=== PATIENT | female | born 1940 | race Caucasian/White ===

== ENCOUNTER → 2016-09-12 | Outpatient (CLI) | payer MEDICARE ==
[2016-09-12 10:48] LABS: CH 30.8; CHCM 34.1; HCT 39.4 % (34.0-46.0); HDW 2.54; HGB 13.2 gm/dL (11.4-16.0); MCH 30.5 pg (25.0-35.0); MCHC 33.6 g/dL (31.0-37.0); MCV 90.7 fL (80.0-100.0); Mean Platelet Volume 7.7; RBC 4.34 m/uL (3.80-5.40); RDW 12.9 % (11.5-15.5); WBC 5.4 k/uL (3.8-10.6)
[2016-09-12 10:49] LABS: Partial Thromboplastin Time 22.2 sec (22.0-30.0)
[2016-09-12 10:51] LABS: Prothrombin Time 10.2 sec (9.0-12.0)
[2016-09-12 11:00] LABS: ALT 68 U/L (9-52); AST 50 U/L (14-36); Alkaline Phosphatase 94 U/L (38-126); Anion Gap 12 mmol/L; Blood Urea Nitrogen 16 mg/dL (7-17); Calcium 9.6 mg/dL (8.4-10.2); Carbon Dioxide 21 mmol/L (22-30); Chloride 108 mmol/L (98-107); Glucose 127 mg/dL (74-99); Non-African American GFR(MDRD) >60 (>60 ml/min/1.73 sqM); Potassium 4.8 mmol/L (3.5-5.1); Sodium 141 mmol/L (137-145); Total Bilirubin 0.6 mg/dL (0.2-1.3); Total Protein 6.7 g/dL (6.3-8.2)
[2016-09-12 11:15] LABS: Appearance,Urine Clear (Clear); Bacteria,Urine Rare /hpf; Bilirubin,Urine Negative (Negative); Glucose,Urine (UA) Negative (Negative); Ketones,Urine Negative (Negative); Leukocyte Esterase,Urine Large (Negative); Mucus,Urine Rare /hpf; Nitrite,Urine Negative (Negative); PH, Urine 5.5 (5.0-8.0); Particle Count 2303; Protein,Urine Negative (Negative); RBC,Urine 2 /hpf (0-5); Specific Gravity,Urine 1.015 (1.001-1.035); Squamous Epithelial Cell,Urine 5 /hpf (0-4); UA Billing (MACRO vs. MICRO) MICRO; Urobilinogen,Urine <2.0 mg/dL (<2.0); WBC,Urine 13 /hpf (0-5)
== END | disposition home or self-care (01) ==
LOC: LABPAT 09:54
PROVIDERS: ATTEND Orthopaedic Surgery
DX: Z01.810 Encounter for preprocedural cardiovascular examination (principal); Z01.812 Encounter for preprocedural laboratory examination
CPT/HCPCS: 80053; 81001; 85027; 85610; 85730; 87070

== ENCOUNTER → 2016-09-20 | Outpatient (CLI) | payer MEDICARE ==
--- NOTE | 2016-09-20 10:39 | USB ---
Reason for exam: follow-up at short interval from prior study. History: Patient is postmenopausal. Family history of breast cancer in paternal aunt at age 70 and breast cancer in maternal aunt. Benign excisional biopsy of the right breast, 2008. Benign excisional biopsy of the right breast. Physical Findings: Nurse did not find any significant physical abnormalities on exam. US Breast RT Prior study comparison: March 21, 2016, right breast US breast workup limited RT. Right breast ultrasound includes all four quadrants, the retroareolar region and axilla. Finding demonstrates a 3 x 3 x 3mm cystic lesion at the retroareolar position. These results were verbally communicated with the patient and result sheet given to the patient on 09/20/16. ASSESSMENT: Benign, BI-RAD 2 RECOMMENDATION: Return to routine screening mammogram schedule for both breasts. Back on schedule.
== END ==
LOC: RADUSWWP 08:53
PROVIDERS: ATTEND Family Medicine
DX: N63 Unspecified lump in breast (principal)

== ENCOUNTER 2016-09-23 07:27 | Inpatient (IN) | payer MEDICARE ==
[2016-09-18 16:40] VITALS: BMI 31.1
[~2016-09-23 07:27] MED LIST: ACETAMINOPHEN TAB 500 MG TAB PO ONE; CLINDAMYCIN 900 MG in DEXTROSE 5% IN WATER 50 ML IVPB ONE; DEXAMETHASONE SOD PHOSPHATE 10 MG/ML 1 ML VIAL IV ONE; HYDROmorphone 1 MG/ML 1 ML SYRINGE IVP PRN; MELOXICAM 7.5 MG TAB PO ONE; MIDAZOLAM 2 MG/2 ML VIAL IV PRN; ONDANSETRON 4 MG/2 ML VIAL IVP ONE; TRANEXAMIC ACID 1,000 MG in SODIUM CHLORIDE 0.9% 100 ML IVPB ONE
[2016-09-23] MEDS: LACTATED RINGERS 1,000 ML IV SCH ×2 (07:43→18:29)
[2016-09-23] MEDS ORDERED: LIDOCAINE 1% 20 ML VIAL (10MG/ML) FOR IV START INTRADERMA ONE (07:43)
[2016-09-23] MEDS ORDERED: fentaNYL (PF) 50 MCG/ML 2 ML AMP IV ONE (08:50)
[2016-09-23] MEDS ORDERED: ePHEDrine 50 MG/ML 1 ML AMP ONE (09:57)
[2016-09-23] MEDS ORDERED: MIDAZOLAM 2 MG/2 ML VIAL ONE (09:57)
[2016-09-23] MEDS ORDERED: PROPOFOL 10 MG/ML 20 ML VIAL IV ONE (09:57)
[2016-09-23] MEDS ORDERED: CLINDAMYCIN 1,800 MG in SODIUM CHLORIDE 0.9% IRRIGATIO 3,000 ML IRRIGATION ONE (09:57)
[2016-09-23] MEDS ORDERED: SODIUM CHLORIDE 0.9% 100 ML BAG ONE (09:57)
[2016-09-23] MEDS ORDERED: PHENYLEPHRINE-0.9% NACL SYG 1 MG/10 ML SYRINGE ONE (09:57)
[2016-09-23] MEDS ORDERED: TRANEXAMIC ACID 1,000 MG/10 ML VIAL ONE (09:57)
[2016-09-23] MEDS ORDERED: fentaNYL (PF) 50 MCG/ML 2 ML AMP ONE (09:57)
[2016-09-23] MEDS: ROPIVACAINE 246.25 MG, EPINEPHrine 0.5 MG, KETOROLAC 30 MG, cloNIDine HCL/PF 80 MCG, WA... MISCELLANE ONE ×10 (10:27→11:00)
[2016-09-23] MEDS ORDERED: LACTATED RINGERS 1,000 ML IV ONE (10:48)
--- NOTE | 2016-09-23 11:15 | P.OP ---
Date of Procedure: 09/23/16 Preoperative Diagnosis: Severe osteoarthritis left knee Postoperative Diagnosis: Severe osteoarthritis left knee Procedure(s) Performed: Left total knee arthroplasty Implants: Tom and Nephew Oxinium femoral component size 4, left Tom & Nephew Nehal II left nonporous tibial baseplate size 3 Tom & Nephew size 9 mm Legion XLPE high flexion articular insert, size 3-4 Tom [employer] Nephew Nehal II resurfacing patellar component, 29 mm All components were cemented using Sheela bone cement.. The articulation is ceramic on polyethylene. Anesthesia: spinal Surgeon: Brandon Gary Gear Lapper #1: Nida Andres Estimated Blood Loss (ml): 50 Pathology: other (Bone and cartilage) Condition: stable Disposition: PACU Indications for Procedure: After failure of conservative treatment we discussed the surgical and nonsurgical treatment options at length. Patient wishes to proceed with a total knee arthroplasty. Complications specific to this procedure were discussed at length, including but not limited to infection, bleeding, stiffness , and nerve injury. Patient is aware of all these complications and informed consent was obtained Operative Findings: The operative findings are consistent with severe osteoarthritis of the left knee Description of Procedure: Patient was seen in the preoperative area consent was reviewed and operative site was marked with a skin marker. An adductor canal pain catheter was placed by anesthesia in the preoperative area. Patient was then brought to the operating room and given preoperative antibiotics intravenously. A spinal anesthetic was administered by the anesthesia department. A tourniquet was placed on the upper thigh and the lower extremity was prepped and draped in usual sterile fashion. A gram of transexamic acid was given. A universal timeout was then performed which confirmed the patient's name, surgical site, ALLERGIES, and consent. The lower extremity was then exsanguinated and tourniquet was inflated to 250 mmHg. A standard and anterior midline approach to the knee was performed. The skin and subcutaneous tissue was dissected down to the patellar tendon. A medial parapatellar arthrotomy was then performed. The knee was then extended, the patellar was everted, and the knee was again flexed. Anterior horns of both menisci were excised, and a release was performed to the posterior medial aspect of the knee. On gross visual inspection, there was complete loss of articular cartilage in the medial and patellofemoral joint spaces. There was also significant cartilage damage in the lateral compartment. There were multiple periarticular osteophytes which were then removed with a Ronguer. The femoral canal was then opened with the appropriate drill, and the intramedullary femoral cutting guide was then placed and set for 4 of valgus. The distal femoral cutting block was then pinned in place, and the distal femur was then cut. The cutting block was then removed and the cut was checked for flatness. Next, the sizing guide was then placed and set for 3 external rotation based off of the epicondylar axis and Whitesides line. After the femur was sized, the appropriate 4-in-1 cutting block was then pinned in place. The anterior condyles were cut without notching. The posterior and chamfer cuts were performed while protecting the collateral ligaments. The cutting block was then removed, and the femoral canal was plugged with autologous bone. Attention was then directed to the tibia. The remaining ACL was removed with a Ronguer, and the tibia was then gently subluxed forward with a large bent knee retractor. Any remaining menisci was excised. The posterior lateral corner was cauterized in order to cauterize the lateral geniculate artery. The extra medullary tibial cutting guide was then placed, set for the appropriate rotation , slope, and depth of resection. The proximal tibia cutting guide was then pinned in place. Proximal tibia was then cut and sized. Next trials were then placed with the appropriate-sized insert. The knee was able to fully extend and flex to 130 and was stable throughout all range of motion. The knee was then extended, patella everted. Patella was then measured, and then using an osteotomy guide, the patella was cut at the appropriate level. The patella was then measured and drilled and the patella trial was then placed. The knee was then taken through range of motion with the patella trial and the patella tracked normally. The knee was then extended patella trial was then removed and the patella was everted. Knee was then flexed and lug holes were drilled through the femoral trial and the femoral trial was then removed. The tibial was then exposed, and the tibial broach guide was then pinned in place after it was set for the appropriate rotation to allow for the most coverage without overhang. The tibia was then reamed and broached. The cut surfaces of bone were then irrigated with pulsatile lavage. The posterior structures were injected with the ropivacaine solution. The knee was also irrigated with Irrisept solution. The components were then opened, the cement was mixed, and the components were then cemented in place. The cement was allowed to harden with the knee in full extension. While the cement was hardening, the remaining soft tissues were then injected with a ropivacaine solution, which consisted of 246.25 mg of ropivacaine, 0.5 mg of epinephrine, 30 mg of Toradol, 80 g of clonidine, and 48.45 mL of sterile water, for a total of 100 mL of fluid injected. After the cemented hardened. The tourniquet was released, and hemostasis was obtained. A second gram of transexamic acid was given. The knee was again irrigated. The knee was again taken through range of motion and found to be stable throughout all range of motion of 0-130 , and the patella tracked normally. The fascia was then closed with #2 strata fix suture. The subcutaneous tissue was closed with 3-0 Vicryl and 3-0 strata fix. Dermabond tape was used for the skin and placed with the knee in flexion. The patient was placed in a sterile dressing. Patient was then transferred to recovery room in stable condition. The library technical assistant GERMAN Gillespie was required due the complexity surgery and the need for a skilled surgical scrub technologist. She assisted in positioning, draping, retraction, and closure of the wound.
[2016-09-23] MEDS ORDERED: MAGNESIUM HYDROXIDE 2,400 MG/10 ML CUP PO PRN (11:49)
[2016-09-23] MEDS ORDERED: HYDROmorphone 1 MG/ML 1 ML SYRINGE IVP PRN ×3 (11:49)
[2016-09-23] MEDS ORDERED: BISACODYL 10 MG SUPP RECTAL PRN (11:49)
[2016-09-23] MEDS ORDERED: DIAZEPAM 5 MG TAB PO PRN ×2 (11:49)
[2016-09-23] MEDS ORDERED: NA PHOS,M-B/NA PHOS,DI-BA 133 ML ENEMA RECTAL PRN (11:49)
[2016-09-23] MEDS ORDERED: hydrOXYzine PAMOATE 25 MG CAP PO PRN (11:49)
[2016-09-23] MEDS ORDERED: NALOXONE 0.4 MG/ML 1 ML VIAL IV PRN (11:49)
[2016-09-23] MEDS ORDERED: SODIUM CHLORIDE 0.9% 1,000 ML IV SCH (12:00)
[2016-09-23] MEDS ORDERED: ROPIVACAINE 1,100 MG, SODIUM CHLORIDE 0.9% 330 ML MISCELLANE PRN ×2 (12:28)
--- NOTE | 2016-09-23 12:34 | XR ---
EXAMINATION TYPE: XR knee limited LT DATE OF EXAM: 09/23/2016 CLINICAL HISTORY: Left knee pain and arthritis status post total knee replacement. TECHNIQUE: Portable AP and crosstable lateral views of the left knee are obtained immediately postop eratively. COMPARISON: None FINDINGS: Overlying bandage material makes evaluation slightly suboptimal. Metallic hardware from to gerardo left knee arthroplasty is seen and appears satisfactory in alignment and position. There is evid ence of recent surgery with diffuse subcutaneous gas and soft tissue swelling noted. IMPRESSION: METALLIC HARDWARE FROM TOTAL LEFT KNEE ARTHROPLASTY IS SATISFACTORY IN ALIGNMENT.
--- NOTE | 2016-09-23 12:53 | P.ONQ ---
Anesthesiology Proc Note - PNB - Peripheral Nerve Block Performed Left Adductor Canal Infusion Time Out Performed: Yes Indication: Acute Post-Operative Pain, Analgesia Specifically requested for management of pain by DrWendy: Brandon Gary Sedation Type: Sedate with meaningful contact maintained Preparation: Sterile Prep Position: Supine Catheter Depth at Skin (cm): 6 Catheter: Indwelling Needle Types: Other (see comment) (Pajunk) Needle Size: 100mm (4") Needle Gauge: Other (see comment) Technique: Ultrasound Injectate: 0.5% Ropivacaine (see comment for volume) (20) Blood Aspirated: No Pain Paresthesia on Injection Noted: No Resistance on Injection: Normal Events: Uneventful and Well Tolerated
[2016-09-23] MEDS: CLINDAMYCIN 900 MG in DEXTROSE 5% IN WATER 50 ML IVPB SCH ×4 (15:18→21:37)
[2016-09-23] MEDS ORDERED: LACTATED RINGERS 250 ML IV SCH (18:30)
[2016-09-23] MEDS: ASPIRIN 325 MG TAB PO SCH (21:21)
[2016-09-23] MEDS: SENNOSIDES-DOCUSATE SODIUM 1 EACH TAB PO SCH (21:21)
[2016-09-24] MEDS: HYDROcodone/APAP 5-325MG 1 EACH TAB PO PRN ×3 (03:40→19:56)
[2016-09-24] MEDS: LACTATED RINGERS 1,000 ML IV SCH ×4 (04:22→22:25)
[2016-09-24 07:15] LABS: Basophils % (A) 0 %; CHCM 34.3; Eosinophils % (A) 0 %; HCT 31.1 % (34.0-46.0); HDW 2.43; HGB 10.3 gm/dL (11.4-16.0); Luc # (Auto) 0.24; Luc % (Auto) 3; Lymphocytes # (A) 1.2 k/uL (1.0-4.8); Lymphocytes % (A) 14 %; MCH 30.2 pg (25.0-35.0); MCHC 33.3 g/dL (31.0-37.0); MCV 90.7 fL (80.0-100.0); Mean Platelet Volume 7.5; Monocytes # (A) 0.6 k/uL (0-1.0); Monocytes % (A) 7 %; Neutrophils # (A) 6.8 k/uL (1.3-7.7); Neutrophils % (A) 76 %; RBC 3.42 m/uL (3.80-5.40); RDW 12.7 % (11.5-15.5); WBC 8.9 k/uL (3.8-10.6); WBC (Perox) 9.21
[2016-09-24] MEDS: ASPIRIN 325 MG TAB PO SCH ×2 (08:02→19:56)
[2016-09-24] MEDS: MELOXICAM 7.5 MG TAB PO SCH (08:02)
--- NOTE | 2016-09-24 11:02 | P.PN ---
Progress Note - Text 0650 anesthesia POD 1. Patient is status post left TKR under spinal anesthesia with a left adductor canal catheter placed for postoperative pain relief. With the infusion of 0.2% ropivacaine at 10 mL per hour the patient's VAS is (3, 5). Catheter site is intact clean and dry.
--- NOTE | 2016-09-24 13:34 | P.PN ---
Subjective Principal diagnosis: Status post total left knee arthroplasty This is a well-appearing 76-year-old female who is status post total left knee arthroplasty. This is postoperative day #1. Patient states her pain is under control and she has been able to get up and walk around. Patient states she has been unable to have a bowel movement but she has been passing gas. Otherwise, patient has no complaints and is doing well. Objective - Vital Signs Vital signs: Vital Signs Temp 97.3 F L 09/24/16 07:00 Pulse 72 09/24/16 07:00 Resp 16 09/24/16 07:00 BP 93/56 09/24/16 07:00 Pulse Ox 94 L 09/24/16 07:00 Intake & Output 09/23/16 09/24/16 09/24/16 18:59 06:59 18:59 Intake Total 1457 2279.5 150 Output Total 50 1300 Balance 1407 979.5 150 Intake: IV 1457 Intake, IV Titration 1679.5 Amount Lactated Ringers 1,000 ml 1429.5 @ 125 mls/hr IV .Q8H MIKE Rx#:[id number] Lactated Ringers 250 ml @ 250 999 mls/hr IV .Q16M MIKE Rx#:[id number] Oral 600 150 Output: Urine 1300 Straight 1300 Estimated Blood Loss 50 - Exam Vital signs are stable. Patient is in no acute distress and is alert and oriented 3. Calf is soft and nontender. Incision is clean, dry, and intact. Neurovascular status intact. Patient has full foot and ankle motion. - Labs CBC & Chem 7: 09/24/16 06:32 Labs: Abnormal Lab Results - Last 24 Hours (Table) 09/24/16 Range/Units 06:32 RBC 3.42 L (3.80-5.40) m/uL Hgb 10.3 L (11.4-16.0) gm/dL Hct 31.1 L (34.0-46.0) % Assessment and Plan (1) S/P total knee arthroplasty Status: Acute (2) Primary osteoarthritis of left knee Status: Acute Plan: #1 Continue with routine postoperative care. #2 Anticoagulation with aspirin. #3 Physical therapy and CPM today. #4 Appreciated input from medicine. #5 Anticipate discharge home with home care likely tomorrow.
[2016-09-24] MEDS: SENNOSIDES-DOCUSATE SODIUM 1 EACH TAB PO SCH (19:56)
[2016-09-24] MEDS ORDERED: LOVASTATIN 80 MG PO SCH (23:45)
[2016-09-25] MEDS: ONDANSETRON 4 MG/2 ML VIAL IVP PRN ×2 (00:06→08:09)
[2016-09-25] MEDS: HYDROcodone/APAP 5-325MG 1 EACH TAB PO PRN ×4 (01:59→19:58)
[2016-09-25] MEDS: MAGNESIUM OXIDE 400 MG TAB PO SCH ×2 (01:59→08:10)
[2016-09-25] MEDS: LEVOTHYROXINE 88 MCG TAB PO SCH ×2 (02:00→08:15)
--- NOTE | 2016-09-25 07:29 | CONS ---
DATE OF CONSULTATION: 09/25/2016 REASON FOR CONSULTATION: Medical management requested by Dr. Parekh. CONSULTATION: This is a 76-year-old patient of Dr. Parekh who has undergone left total knee arthroplasty. Post ( ) did have some nausea, tired that was getting better. Chronic stable medical conditions include hypertension, hyperlipidemia, hypothyroid, psoriasis. Patient is feeling better. No chest pain, shortness of breath. Did tolerate some diet. REVIEW OF SYSTEMS: CONSTITUTIONAL: None. HEENT: None. RESPIRATORY: None. CARDIOVASCULAR: None. GASTROINTESTINAL: None. GENITOURINARY: None. MUSCULOSKELETAL: DERMATOLOGICAL: Psoriasis. LYMPHATICS: None. PSYCHIATRY: None. NEUROLOGICAL: None. PAST HISTORY: Hypertension, hyperlipidemia, hypothyroid, psoriasis, osteoarthritis. PAST SURGICAL HISTORY: Appendectomy, orthopedic surgery, tonsillectomy, thyroidectomy, cyst removed from the right breast. SOCIAL HISTORY: Patient smoked less than pack a day for over 35 years; stopped in 1994. Alcohol none. FAMILY HISTORY: Myocardial infarction, hypertension, thyroid disorder. HOME MEDICATIONS: 1. Bactrim DS 1 tablet p.o. q.12. 2. Magnesium 500 mg p.o. daily. 3. Lovastatin 80 mg q.h.s. 4. Lisinopril 20 mg p.o. daily. 5. Synthroid 88 mcg p.o. daily. 6. Vitamin D3, 5000 units p.o. daily. 7. Aspirin 81 mg q.h.s. 8. Senokot-S 1 tablet p.o. b.i.d. 9. [place] 5 one to 2 tablets q.4 p.r.n. 10. Aspirin. Allergies to PENICILLIN and LIPITOR. On examination, temperature 97.6, pulse 85, respirations 16, blood pressure 125/65, pulse ox 95%. GENERAL APPEARANCE: Well built, BMI 31.1. Sitting up in a chair, not in distress. EYES: Pupils equal. Conjunctivae normal. HENT: External appearance of nose and ears normal. Oral cavity normal. NECK: JVD not raised. Mass not palpable. RESPIRATORY: Effort normal. LUNGS: Fair air entry. CARDIOVASCULAR: First and second sounds normal. No edema. ABDOMEN: Soft, nontender. Liver and spleen not palpable. LYMPHATIC: No lymph node palpable in neck or axillae. PSYCHIATRY: Alert and oriented x3. Mood and affect normal. NEUROLOGICAL: Pupils equal. Cranial nerves grossly intact. Power and sensation grossly intact. INVESTIGATIONS: White count 8.9, hemoglobin 10.3, platelets 191. ASSESSMENT: 1. Left total knee arthroplasty. 2. Essential hypertension. 3. Hyperlipidemia. 4. Hypothyroidism. PLAN: Home medications will be resumed and getting aspirin for DVT prophylaxis. Care was discussed with the patient. Questions were answered. Patient should follow with Dr. Parekh after discharge. Thank you Dr. Gary.
[2016-09-25] MEDS: LACTATED RINGERS 1,000 ML IV SCH ×2 (08:10→13:45)
[2016-09-25] MEDS: ASPIRIN 325 MG TAB PO SCH ×2 (08:10→19:58)
[2016-09-25] MEDS: MELOXICAM 7.5 MG TAB PO SCH (08:10)
[2016-09-25] MEDS: LISINOPRIL 20 MG TAB PO SCH (08:11)
--- NOTE | 2016-09-25 08:32 | P.DS ---
Providers Date of admission: 09/23/16 07:27 Expected date of discharge: 09/25/16 Attending physician: Brandon Gary Consults: 09/23/16 11:49 Consult Physician Routine Consulting Provider: Ector Mancia Consult Reason/Comments: medical management Do you want consulting provider notified?: Yes Primary care physician: Manuel Parekh - Discharge Diagnosis(es) (1) S/P total knee arthroplasty Current Visit: Yes Status: Acute (2) Primary osteoarthritis of left knee Current Visit: Yes Status: Acute Hospital Course: This is a 76-year-old female with known history of degenerative arthritis of the left knee. The patient presents for evaluation. After discussion and consideration patient elects to proceed with total knee arthroplasty. The patient is seen preoperatively by Dr. Gary and cleared for surgery. Patient is admitted to [facility] on 09/23/2016 for total knee arthroplasty. The procedures performed without complication or sequelae. The patient is doing well postoperatively. Labs and vital signs are stable on day of discharge. On day of discharge patient's knee incision is healing well. There is minimal erythema. There is no drainage noted at this time. There is minimal soft tissue swelling to the knee. Patient has full foot and ankle motion without difficulty or pain. Neurovascular status to the left lower extremity is intact. Patient is discharged home in good condition. Please see med rec for accurate list of home medications. Plan - Discharge Summary New Discharge Prescriptions: New Aspirin 325 mg PO BID #60 tab HYDROcodone/APAP 5-325MG [Callender 5-325] 1 - 2 tab PO Q4-6H PRN #90 tab PRN Reason: Pain Sennosides-Docusate Sodium [Senokot-S] 1 tab PO BID #60 tablet Ondansetron Odt [Zofran Odt] 4 mg PO Q8HR PRN #21 tab PRN Reason: Nausea No Action Levothyroxine Sodium [Synthroid] 88 mcg PO QAM Lisinopril 20 mg PO QAM Aspirin 81 mg PO HS Lovastatin 80 mg PO HS Cholecalciferol [Vitamin D3] 5,000 unit PO QAM Sulfamethox-Tmp 800-160Mg [Bactrim DS 800-160 mg] 1 tab PO Q12HR Magnesium Oxide [Magnesium] 500 mg PO DAILY Discharge Medication List Aspirin 81 mg PO HS 05/25/14 [History] Levothyroxine Sodium [Synthroid] 88 mcg PO QAM 05/25/14 [History] Lisinopril 20 mg PO QAM 05/25/14 [History] Lovastatin 80 mg PO HS 05/25/14 [History] Cholecalciferol [Vitamin D3] 5,000 unit PO QAM 04/03/15 [History] Magnesium Oxide [Magnesium] 500 mg PO DAILY 09/19/16 [History] Sulfamethox-Tmp 800-160Mg [Bactrim DS 800-160 mg] 1 tab PO Q12HR 09/19/16 [ History] Aspirin 325 mg PO BID #60 tab 09/24/16 [Rx] HYDROcodone/APAP 5-325MG [Callender 5-325] 1 - 2 tab PO Q4-6H PRN #90 tab 09/24/16 [ Rx] Sennosides-Docusate Sodium [Senokot-S] 1 tab PO BID #60 tablet 09/24/16 [Rx] Ondansetron Odt [Zofran Odt] 4 mg PO Q8HR PRN #21 tab 09/25/16 [Rx] Follow up Appointment(s)/Referral(s): Brandon Gary DO [Doctor of Osteopathic Medicine] - 2 Weeks [facility] Visiting Nurse, [NON-STAFF] - 1 Week Ambulatory/Diagnostic Orders: Continuous Passive Motion (CPM) Machine [DME.AMB1] Time Frame: 2 Weeks, Location : Determined By Patient Continuous Passive Motion (CPM) Machine [DME.AMB1] Time Frame: 2 Weeks, Location : Determined By Patient Activity/Diet/Wound Care/Special Instructions: Weightbearing as tolerated with a walker CPM 5-6h daily Daily dressing changes, keep incision clean and dry May shower if no drainage from incision [facility] with questions or concerns [phone] Discharge Disposition: HOME WITH HOME HEALTH SERVICES
[2016-09-25 14:11] VITALS: RESP 16
[2016-09-25] MEDS: SENNOSIDES-DOCUSATE SODIUM 1 EACH TAB PO SCH (19:58)
--- NOTE | 2016-09-25 20:53 | PN ---
DATE OF SERVICE: 09/25/2016 This 76-year-old woman was admitted after left total knee arthroplasty. She is improving significantly. Patient complains of some pain while walking. No chest pain. No palpitation. No fever. No shortness of breath. On exam, alert and oriented x3. Pulse 74, blood pressure 156/70, respiration 18, temperature 98.1, pulse ox 96% on room air. HEENT: Conjunctivae normal. NECK: No jugular venous distention. CARDIOVASCULAR SYSTEM: S1, S2 muffled. RESPIRATORY SYSTEM: Breath sounds diminished at the bases. No rhonchi. No crackles. ABDOMEN: Soft, non-tender. No mass palpable. LEGS: Status post knee arthroplasty. NERVOUS SYSTEM: No focal deficit. LABS: WBC 8.1, hemoglobin 10.3. ASSESSMENT: 1. Status post left total knee arthroplasty. 2. Anemia, possibly dilutional. 3. History of hypertension. 4. Hyperlipidemia. 5. Hypothyroidism. RECOMMENDATIONS AND DISCUSSION: In this 76-year-old woman who presented after surgery, at this time I recommend to continue current medications, continue symptomatic treatment, continue with the pain medications. Otherwise, incentive spirometry, DVT prophylaxis. Closely follow with primary physician in the outpatient setting. Further recommendations to follow.
[2016-09-26] MEDS: LACTATED RINGERS 1,000 ML IV SCH ×2 (01:15→06:51)
[2016-09-26] MEDS: HYDROcodone/APAP 5-325MG 1 EACH TAB PO PRN ×2 (03:17→09:34)
[2016-09-26 07:50] VITALS: BP 151/72; PULSE 82; TEMP 98.4
[2016-09-26] MEDS: MAGNESIUM OXIDE 400 MG TAB PO SCH (08:14)
[2016-09-26] MEDS: ASPIRIN 325 MG TAB PO SCH (08:14)
[2016-09-26] MEDS: LISINOPRIL 20 MG TAB PO SCH (08:14)
[2016-09-26] MEDS: LEVOTHYROXINE 88 MCG TAB PO SCH (08:14)
[2016-09-26] MEDS: MELOXICAM 7.5 MG TAB PO SCH (08:14)
[2016-09-26 08:17] LABS: Basophils # (A) 0.1 k/uL (0-0.2); Basophils % (A) 1 %; CHCM 33.1; Eosinophils # (A) 0.3 k/uL (0-0.7); Eosinophils % (A) 3 %; HCT 38.4 % (34.0-46.0); HDW 2.33; HGB 12.3 gm/dL (11.4-16.0); Luc # (Auto) 0.37; Luc % (Auto) 4; Lymphocytes % (A) 36 %; MCH 30.1 pg (25.0-35.0); MCV 94.1 fL (80.0-100.0); Mean Platelet Volume 7.9; Monocytes # (A) 0.8 k/uL (0-1.0); Monocytes % (A) 9 %; Neutrophils % (A) 47 %; RBC 4.08 m/uL (3.80-5.40); RDW 13.3 % (11.5-15.5); WBC 8.5 k/uL (3.8-10.6); WBC (Perox) 8.23
== END 2016-09-26 10:35 | disposition home health service (06) | DRG 470 ==
LOC: 2ORMAIN 07:27 → 3SUR 11:49
PROVIDERS: ADMIT Orthopaedic Surgery; ATTEND Orthopaedic Surgery
PROC: 0SRD0J9 Replacement of Left Knee Joint with Synthetic Substitute, Cemented, Open Approach (ICD-10-PCS; principal; 2016-09-23 09:35)
DX: M17.12 Unilateral primary osteoarthritis, left knee (principal); D64.9 Anemia, unspecified; E11.9 Type 2 diabetes mellitus without complications; I10 Essential (primary) hypertension; E89.0 Postprocedural hypothyroidism; T40.2X5A Adverse effect of other opioids, initial encounter; M25.762 Osteophyte, left knee; R11.0 Nausea; M81.0 Age-related osteoporosis without current pathological fracture; M25.462 Effusion, left knee; M21.162 Varus deformity, not elsewhere classified, left knee; H91.90 Unspecified hearing loss, unspecified ear; E78.5 Hyperlipidemia, unspecified; L40.9 Psoriasis, unspecified; R26.2 Difficulty in walking, not elsewhere classified; R53.83 Other fatigue; Z88.0 Allergy status to penicillin; Z79.899 Other long term (current) drug therapy; Z79.82 Long term (current) use of aspirin; Z82.49 Family history of ischemic heart disease and other diseases of the circulatory system; Z87.891 Personal history of nicotine dependence; Z88.8 Allergy status to other drugs, medicaments and biological substances; Z90.49 Acquired absence of other specified parts of digestive tract; Z79.2 Long term (current) use of antibiotics; Z79.891 Long term (current) use of opiate analgesic; Z83.3 Family history of diabetes mellitus; Z83.49 Family history of other endocrine, nutritional and metabolic diseases
CPT/HCPCS: 85025; 88300

== ENCOUNTER → 2017-04-03 | Outpatient (CLI) | payer MEDICARE ==
--- NOTE | 2017-04-03 15:34 | US ---
EXAMINATION TYPE: US kidneys/renal and bladder DATE OF EXAM: 04/03/2017 COMPARISON: NONE CLINICAL HISTORY: N28.9 Renal impairment. Abnormal labs, no symptoms EXAM MEASUREMENTS: Right Kidney: 10.0 x 4.0 x 4.7 cm Left Kidney: 10.0 x 3.8 x 5.7 cm Right Kidney: wnl Left Kidney: wnl Bladder: wnl Bilateral Jets seen: no IMPRESSION: 1. Normal renal ultrasound
== END | disposition home or self-care (01) ==
LOC: RADUSWWP 14:43
PROVIDERS: ATTEND Family Medicine
DX: N28.9 Disorder of kidney and ureter, unspecified (principal)
CPT/HCPCS: 76770

== ENCOUNTER → 2017-05-07 | Outpatient (CLI) | payer MEDICARE ==
--- NOTE | 2017-05-08 10:07 | MM ---
Reason for exam: screening (asymptomatic). Last mammogram was performed 1 year and 2 months ago. History: Patient is postmenopausal. Family history of breast cancer in paternal aunt at age 70 and breast cancer in maternal aunt. Benign excisional biopsy of the right breast, 2008. Benign excisional biopsy of the right breast. Physical Findings: A clinical breast exam by your physician is recommended on an annual basis and results should be correlated with mammographic findings. MG 3D Screening Mammo W/Cad Bilateral CC and MLO view(s) were taken. Prior study comparison: March 12, 2016, bilateral MG 3d screening mammo w/cad. August 15, 2015, right breast MG 3d diag mammo w/cad RT. The breast tissue is heterogeneously dense. This may lower the sensitivity of mammography. No suspicious abnormality. No significant changes when compared with prior studies. ASSESSMENT: Negative, BI-RAD 1 RECOMMENDATION: Routine screening mammogram of both breasts in 1 year.
== END | disposition home or self-care (01) ==
LOC: RADMAMWWP 11:36
PROVIDERS: ATTEND Family Medicine
DX: Z12.31 Encounter for screening mammogram for malignant neoplasm of breast (principal)
CPT/HCPCS: 77063; 77067

== ENCOUNTER → 2018-04-17 | Outpatient (CLI) | payer MEDICARE ==
--- NOTE | 2018-04-17 09:52 | US ---
EXAMINATION TYPE: US liver DATE OF EXAM: 04/17/2018 COMPARISON: NONE CLINICAL HISTORY: R94.5 ABN LIVER RESULTS. elevated labs, diabetic, RUQ tenderness EXAM MEASUREMENTS: Liver Length: 14.4 cm Gallbladder Wall: 0.3 cm CBD: 0.5 cm Right Kidney: 10.0 x 4.1 x 4.8 cm Pancreas: wnl Liver: There is increased echogenicity of the hepatic parenchyma with diminished visualization of th e portal triads most commonly relating to hepatic steatosis and limiting evaluation for underlying he patic masses. Gallbladder: small choleliths seen dependently, no gallbladder wall thickening Evidence for sonographic Rodriguez's sign: yes CBD: wnl Right Kidney: wnl IMPRESSION: 1. Cholelithiasis with no sonographic evidence of acute cholecystitis other than positive sonographic Rodriguez sign noted by the patient. 2. Sonographic findings most commonly related to hepatic steatosis.
== END | disposition home or self-care (01) ==
LOC: RADUSWWP 08:44
PROVIDERS: ATTEND Family Medicine
DX: K80.20 Calculus of gallbladder without cholecystitis without obstruction (principal)
CPT/HCPCS: 76705

== ENCOUNTER 2018-05-19 10:35 | Day surgery (SDC) | payer MEDICARE ==
[2018-05-14 14:54] VITALS: BMI 30.5
[~2018-05-19 10:35] MED LIST changes: -ACETAMINOPHEN TAB 500 MG TAB PO ONE; -CLINDAMYCIN 900 MG in DEXTROSE 5% IN WATER 50 ML IVPB ONE; -HYDROmorphone 1 MG/ML 1 ML SYRINGE IVP PRN; +LIDOCAINE 1% 20 ML VIAL (10MG/ML) FOR IV START INTRADERMA PRN; -MELOXICAM 7.5 MG TAB PO ONE; +MIDAZOLAM (PF) 2 MG/2 ML VIAL IV PRN; -MIDAZOLAM 2 MG/2 ML VIAL IV PRN; +Pre Op ABX Message 1 EACH MISC MISCELLANE ONE; -TRANEXAMIC ACID 1,000 MG in SODIUM CHLORIDE 0.9% 100 ML IVPB ONE; +fentaNYL (PF) 50 MCG/ML 2 ML AMP IV PRN
[2018-05-19] MEDS: LACTATED RINGERS 1,000 ML IV SCH ×2 (11:25→14:41)
[2018-05-19 11:28] LABS: Glucose,Whole Blood 110 mg/dL (75-99)
[2018-05-19] MEDS ORDERED: BUPIVACAIN-EPI 0.25%-1:200,000 30 ML VIAL SQ ONE ×2 (12:26)
[2018-05-19] MEDS ORDERED: GLYCOPYRROLATE 0.2 MG/ML 2 ML VIAL ONE (12:31)
[2018-05-19] MEDS ORDERED: SUCCINYLCHOLINE CHLORIDE 100 MG/5 ML SYR IV ONE (12:31)
[2018-05-19] MEDS ORDERED: PROPOFOL 10 MG/ML 20 ML VIAL IV ONE (12:31)
[2018-05-19] MEDS ORDERED: NEOSTIGMINE 1 MG/ML 10 ML VIAL ONE (12:31)
[2018-05-19] MEDS ORDERED: fentaNYL (PF) 50 MCG/ML 2 ML AMP ONE (12:31)
[2018-05-19] MEDS ORDERED: MIDAZOLAM 2 MG/2 ML VIAL ONE (12:31)
[2018-05-19] MEDS ORDERED: ROCURONIUM BROMIDE 10 MG/ML 10 ML VIAL IV ONE (12:31)
--- NOTE | 2018-05-19 13:31 | P.OP ---
Date of Procedure: 05/19/18 Preoperative Diagnosis: Cholelithiasis, biliary colic, elevated liver function tests Postoperative Diagnosis: Same Procedure(s) Performed: Laparoscopic cholecystectomy with liver biopsy Anesthesia: YANNICK Surgeon: Kathleen Guardado Estimated Blood Loss (ml): 15 Pathology: other (Gallbladder and liver biopsy) Condition: stable Disposition: PACU Indications for Procedure: The patient had outpatient workup showing cholelithiasis. She had mild elevation of her liver function tests and concern of fatty liver on her ultrasound. Description of Procedure: The patient's taken the operative suite where she is prepped and draped in the usual sterile manner under general endotracheal anesthetic. An infraumbilical incision was made and an optical trocar was placed into the abdominal cavity. Pneumoperitoneum was established with CO2 gas. Sites are chosen for accessory trochars needs are placed through small skin incisions. The gallbladder is then grasped and retracted towards the anterior abdominal wall. Some filmy adhesions of the omentum are taken down. Howell's pouch is identified. Its grasped and retracted laterally. The cystic duct and cystic artery are dissected free. They're triply clipped and cut. Small accessory vessel just above the cystic duct was also clipped and cut. The gallbladder is then dissected free from the liver bed. Small bleeding points are controlled with electrocautery. The pneumoperitoneum was then deflated somewhat. A small karen was made in the right upper quadrant and a Magno-Cut type needle was placed into the liver and some small core biopsies were obtained. Small bleeding points are controlled with electrocautery. The gallbladder is removed through the umbilical port site. The liver bed and surface where the liver biopsies had been performed were irrigated and aspirated. There appeared hemostatic. The excess irrigant was suctioned out. The pneumoperitoneum was released. The trochars were removed. The fascia at the umbilicus was closed with 0 Vicryl. The skin incisions were closed with 4-0 Vicryl in a subcuticular manner. Her applied. She tolerated the procedure without difficulty and was taken recovery room in satisfactory condition. According to or personnel, WERE correct. Plan - Discharge Summary Discharge Rx Participant: Yes New Discharge Prescriptions: New traMADol HCL [Ultram] 50 - 100 mg PO Q6HR PRN 3 Days #20 tab PRN Reason: Pain No Action Levothyroxine Sodium [Synthroid] 88 mcg PO QAM Lisinopril 20 mg PO QAM Lovastatin 80 mg PO HS sitaGLIPtin [Januvia] 50 mg PO QAM Aspirin [Adult Low Dose Aspirin EC] 81 mg PO HS Discharge Medication List Levothyroxine Sodium [Synthroid] 88 mcg PO QAM 05/25/14 [History] Lisinopril 20 mg PO QAM 05/25/14 [History] Lovastatin 80 mg PO HS 05/25/14 [History] Aspirin [Adult Low Dose Aspirin EC] 81 mg PO HS 05/14/18 [History] sitaGLIPtin [Januvia] 50 mg PO QAM 05/14/18 [History] traMADol HCL [Ultram] 50 - 100 mg PO Q6HR PRN 3 Days #20 tab 05/19/18 [Rx] Follow up Appointment(s)/Referral(s): Kathleen Guardado DO [Doctor of Osteopathic Medicine] - 2 Weeks Activity/Diet/Wound Care/Special Instructions: Keep the current dressings on until . Then they may be removed and you may shower. You may use a light dressing on the incisions if they are irritating the clothing or draining. Expect some bruising by the bellybutton. You can take Tylenol or Motrin instead of or in addition to the pain medication. Follow a low-fat diet. Call if you develop fever, chills, concerned about wound drainage or other concerns. Discharge Disposition: HOME SELF-CARE
[2018-05-19 13:39] VITALS: TEMP 97.5
[2018-05-19] MEDS ORDERED: KETOROLAC 30 MG/ML 1 ML VIAL IVP ONE (13:45)
[2018-05-19] MEDS ORDERED: HYDROmorphone 1 MG/ML 1 ML SYRINGE IVP ONE ×2 (13:45→13:55)
[2018-05-19 14:49] LABS: Glucose,Whole Blood 130 mg/dL (75-99)
[2018-05-19 14:51] VITALS: RESP 16
[2018-05-19] MEDS ORDERED: traMADol 50 MG TAB PO ONE (15:05)
[2018-05-19 16:05] LABS: Glucose,Whole Blood 143 mg/dL (75-99)
[2018-05-19 17:48] VITALS: BP 119/73; PULSE 68
== END 2018-05-19 18:19 | disposition home or self-care (01) ==
LOC: OR 10:35
PROVIDERS: ATTEND Surgery
DX: K80.64 Calculus of gallbladder and bile duct with chronic cholecystitis without obstruction (principal); K75.81 Nonalcoholic steatohepatitis (NASH); E03.9 Hypothyroidism, unspecified; M19.90 Unspecified osteoarthritis, unspecified site; I10 Essential (primary) hypertension; E11.9 Type 2 diabetes mellitus without complications; E78.1 Pure hyperglyceridemia; Z82.49 Family history of ischemic heart disease and other diseases of the circulatory system; Z79.84 Long term (current) use of oral hypoglycemic drugs; Z79.82 Long term (current) use of aspirin; Z79.890 Hormone replacement therapy; Z79.899 Other long term (current) drug therapy; E04.9 Nontoxic goiter, unspecified; Z88.0 Allergy status to penicillin; Z88.8 Allergy status to other drugs, medicaments and biological substances
CPT/HCPCS: 47562; 47001; 88304; 88313; 88307; J2250; J1100; J2710; J2405; J3010; J1885; J1170; J0330; J2704

== ENCOUNTER → 2018-09-09 | Outpatient (CLI) | payer MEDICARE ==
--- NOTE | 2018-09-11 14:18 | MM ---
Reason for exam: screening (asymptomatic). Last mammogram was performed 1 year and 4 months ago. History: Patient is postmenopausal. Family history of breast cancer in paternal aunt at age 70 and breast cancer in maternal aunt. Benign excisional biopsy of the right breast, 2008. Benign excisional biopsy of the right breast. Physical Findings: A clinical breast exam by your physician is recommended on an annual basis and results should be correlated with mammographic findings. MG 3D Screening Mammo W/Cad Bilateral CC and MLO view(s) were taken. Prior study comparison: May 07, 2017, bilateral MG 3d screening mammo w/cad. March 12, 2016, bilateral MG 3d screening mammo w/cad. The breast tissue is heterogeneously dense. This may lower the sensitivity of mammography. Asymmetries greater in the left breast. ASSESSMENT: Benign, BI-RAD 2 RECOMMENDATION: Routine screening mammogram of both breasts in 1 year.
== END | disposition home or self-care (01) ==
LOC: RADMAMWWP 11:00
PROVIDERS: ATTEND Family Medicine
DX: Z12.31 Encounter for screening mammogram for malignant neoplasm of breast (principal)
CPT/HCPCS: 77063; 77067

== ENCOUNTER → 2020-06-29 | Outpatient (CLI) | payer MEDICARE ==
--- NOTE | 2020-06-30 10:50 | MM ---
Reason for exam: screening (asymptomatic). Last mammogram was performed 1 year and 10 months ago. History: Patient is postmenopausal. Family history of breast cancer in paternal aunt at age 70 and breast cancer in maternal aunt. Benign excisional biopsy of the right breast, 2008. Benign excisional biopsy of the right breast. Physical Findings: A clinical breast exam by your physician is recommended on an annual basis and results should be correlated with mammographic findings. MG 3D Screening Mammo W/Cad Bilateral CC and MLO view(s) were taken. Prior study comparison: September 09, 2018, bilateral MG 3d screening mammo w/cad. May 07, 2017, bilateral MG 3d screening mammo w/cad. The breast tissue is heterogeneously dense. This may lower the sensitivity of mammography. Benign appearing calcifications in the left breast. No significant changes when compared with prior studies. ASSESSMENT: Benign, BI-RAD 2 RECOMMENDATION: Routine screening mammogram of both breasts in 1 year.
== END | disposition home or self-care (01) ==
LOC: RADMAMWWP 13:06
PROVIDERS: ATTEND Family Medicine
DX: Z12.31 Encounter for screening mammogram for malignant neoplasm of breast (principal); Z78.0 Asymptomatic menopausal state; Z80.3 Family history of malignant neoplasm of breast
CPT/HCPCS: 77063; 77067

== ENCOUNTER → 2022-04-03 | Outpatient (CLI) | payer MEDICARE ==
--- NOTE | 2022-04-04 15:40 | MM ---
Reason for Exam: Screening (asymptomatic). Last mammogram was performed 1 year(s) and 9 month(s) ago. Patient History: Menarche at age 14. First Full-Term at age 22. Postmenopausal. 2009, Benign Excisional Biopsy on the right side. Benign Excisional Biopsy on the right side. Paternal aunt had breast cancer, age 70. Maternal aunt had breast cancer. Risk Values: Aaliyah 5 year model risk: 2.2%. NCI Lifetime model risk: 3.4%. Prior Study Comparison: 05/07/2017 Bilateral Screening Mammogram, [facility]. 09/09/2018 Bilateral Screening Mammogram, [facility]. 06/29/2020 Bilateral Screening Mammogram, [facility]. Tissue Density: The breast tissue is heterogeneously dense. This may lower the sensitivity of mammography. Findings: Analyzed By CAD. Focal asymmetries in the upper outer left breast, stable from comparison. Benign coarse calcifications within the left breast. No suspicious groups of microcalcifications, spiculated or lobular masses, architectural distortion or other secondary signs of malignancy are mammographically apparent. Overall Assessment: Benign, BI-RAD 2 Management: Screening Mammogram of both breasts in 1 year. A negative mammogram report should not preclude additional follow up of suspicious palpable abnormalities. Patient should continue monthly self breast exam. A clinical breast exam by your physician is recommended on an annual basis and results should be correlated with mammographic findings. Electronically signed and approved by: Manuel Camargo D.O. Radiologis
== END | disposition home or self-care (01) ==
LOC: RADMAMWWP 13:24
PROVIDERS: ATTEND Family Medicine
DX: Z12.31 Encounter for screening mammogram for malignant neoplasm of breast (principal); Z78.0 Asymptomatic menopausal state; Z80.3 Family history of malignant neoplasm of breast; Z98.890 Other specified postprocedural states
CPT/HCPCS: 77063; 77067

== ENCOUNTER → 2023-04-04 | Outpatient (CLI) | payer MEDICARE ==
--- NOTE | 2023-04-07 14:24 | MM ---
Reason for Exam: Screening (asymptomatic). Last screening mammogram was performed 12 month(s) ago. Patient History: Menarche at age 14. First Full-Term at age 22. Postmenopausal. 2008, Benign Excisional Biopsy on the right side. Benign Excisional Biopsy on the right side. Paternal aunt had breast cancer, age 70. Maternal aunt had breast cancer. Risk Values: Aaliyah 5 year model risk: 2.2%. NCI Lifetime model risk: 3.1%. Prior Study Comparison: 09/09/2018 Bilateral Screening Mammogram, [facility]. 06/29/2020 Bilateral Screening Mammogram, [facility]. 04/03/2022 Bilateral MG 3D screening mammo w/cad, [facility]. Tissue Density: There are scattered fibroglandular densities. Findings: Analyzed By CAD. Unchanged global asymmetry upper outer quadrant left breast. There is no suspicious group of microcalcifications or new suspicious mass in either breast. Overall Assessment: Benign, BI-RAD 2 Management: Screening Mammogram of both breasts in 1 year. . Patient should continue monthly self-breast exams. A clinical breast exam by your physician is recommended on an annual basis. This exam should not preclude additional follow-up of suspicious palpable abnormalities. Note on Aaliyah scores and lifetime risk: 1. A Aaliyah score greater than 3% is considered moderate risk. If this is the case, consider specialist referral to assess eligibility for a risk reducing agent. 2. If overall lifetime risk for the development of breast cancer is 20% or higher, the patient may qualify for future screening with alternating mammogram and breast MRI. Electronically signed and approved by: Junior Sanford M.D. Radiologist
== END | disposition home or self-care (01) ==
LOC: RADMAMWWP 10:58
PROVIDERS: ATTEND Family Medicine
DX: Z12.31 Encounter for screening mammogram for malignant neoplasm of breast (principal); Z80.3 Family history of malignant neoplasm of breast; Z78.0 Asymptomatic menopausal state
CPT/HCPCS: 77063; 77067

== ENCOUNTER → 2024-04-02 | Outpatient (CLI) | payer MEDICARE ==
--- NOTE | 2024-04-02 10:56 | MM ---
Reason for Exam: Clinical finding. Last screening mammogram was performed 12 month(s) ago. Patient History: Menarche at age 14. First Full-Term at age 22. Postmenopausal. 2008, Benign Excisional Biopsy on the right side. Benign Excisional Biopsy on the right side. Paternal aunt had breast cancer, age 70. Maternal aunt had breast cancer. Risk Values: Aaliyah 5 year model risk: 2.1%. NCI Lifetime model risk: 2.8%. Tissue Density: The breasts are heterogeneously dense, which may obscure small masses. Findings: Analyzed By CAD. Global asymmetry left upper quadrant remains unchanged. Calcifications medial left breast are unchanged. Focal asymmetry right upper outer quadrant is unchanged. No significant change from prior exams. Overall Assessment: Benign, BI-RAD 2 Management: Screening Mammogram of both breasts in 1 year. Further clinical management of patient's lateral right-sided pain. Results were given to the patient verbally at the time of exam. Patient should continue monthly self-breast exams. A clinical breast exam by your physician is recommended on an annual basis. This exam should not preclude additional follow-up of suspicious palpable abnormalities. Note on Aaliyah scores and lifetime risk: 1. A Aaliyah score greater than 3% is considered moderate risk. If this is the case, consider specialist referral to assess eligibility for a risk reducing agent. 2. If overall lifetime risk for the development of breast cancer is 20% or higher, the patient may qualify for future screening with alternating mammogram and breast MRI. [facility], , 04/02/2024 10:53 AM. Electronically signed and approved by: Junior Sanford M.D. Radiologist
== END | disposition home or self-care (01) ==
LOC: RADMAMWWP 10:25
PROVIDERS: ATTEND Family Medicine
DX: R92.333 Mammographic heterogeneous density, bilateral breasts (principal); N64.4 Mastodynia; Z78.0 Asymptomatic menopausal state; Z80.3 Family history of malignant neoplasm of breast
CPT/HCPCS: 77066; G0279; 77062

== ENCOUNTER → 2024-08-25 | Outpatient (CLI) | payer MEDICARE ==
--- NOTE | 2024-08-25 10:12 | US ---
EXAMINATION TYPE: US arterial LE single level DATE OF EXAM: 08/25/2024 9:51 AM COMPARISONS: None. 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 Intermittent discoloration, purple, bilateral feet. Tingling toes TECHNIQUE: Systolic pressures were taken of the upper and lower extremity arteries with ankle-brachia l indices and toe brachial indices calculated bilaterally. History of: Hypertension: yes Diabetic: yes Hyperlipidemia: yes TIA/CVA: no Previous Vascular Surgery: no [place]: no Vascular Ulcers: no Claudication: no Gangrene: no FINDINGS: Doppler Waveforms: Right: Biphasic Left: Biphasic Brachial Artery systolic pressure: Right: 144 Left: 139 Posterior Tibial artery systolic pressure: Right: 149 Left: 151 Dorsalis Pedis artery systolic pressure: Right: 145 Left: 137 Toe artery systolic pressure: Right: 87 Left: 47 Ankle-Brachial Indices: Right: 1.03 Left: 1.05 Toe Brachial Indices: Right: 0.60 Left: 0.33 (Normal > 0.6; Mild 0.35 - 0.59, Moderate 0.12 - 0.34, Severe <0.12) IMPRESSION: AZALEA: Right: Normal 0.9 - 1.4, Recommendation: None Left: Normal 0.9 - 1.4, Recommendation: None Abnormal left sided TBI noted. Moderate peripheral vascular disease left foot is present. [facility], , 08/25/2024 10:09 AM
== END | disposition home or self-care (01) ==
LOC: RADUSWWP 08:51
PROVIDERS: ATTEND Family Medicine
DX: G47.62 Sleep related leg cramps (principal); E11.51 Type 2 diabetes mellitus with diabetic peripheral angiopathy without gangrene; E78.5 Hyperlipidemia, unspecified; I10 Essential (primary) hypertension
CPT/HCPCS: 93922